=== PATIENT | female | born 1990 | race Hispanic/Latino ===

== ENCOUNTER 2020-10-23 21:11 | Emergency (ER) | payer MEDICARE ==
[2020-10-24] MEDS ORDERED: SODIUM CHLORIDE 0.9% 1000 ML 1,000 ML IV ONE (00:48)
[2020-10-24] MEDS ORDERED: MORPHINE 4 MG/1 ML INJ IV ONE (00:48)
[2020-10-24] MEDS ORDERED: HYDROmorphone 1 MG/1 ML INJ IV ONE ×3 (01:05→03:40)
[2020-10-24] MEDS ORDERED: diphenhydrAMINE 50 MG/ML VIAL IV ONE ×2 (01:05→03:42)
[2020-10-24 01:22] LABS: Basophils % (Auto) 0.4 % (0.0-1.8); Eosinophils # (Auto) 0.1 K/mm3 (0.0-0.4); Eosinophils % (Auto) 0.8 % (0.0-4.3); Hematocrit 32.1 % (30.3-42.9); Lymphocytes # (Auto) 2.2 K/mm3 (1.2-5.4); Lymphocytes % (Auto) 26.7 % (13.4-35.0); Mean Corpuscular HGB Conc 31 % (30-34); Mean Corpuscular Volume 77 fl (79-97); Monocytes # (Auto) 0.4 K/mm3 (0.0-0.8); Monocytes % (Auto) 5.2 % (0.0-7.3); Platelet Count 312 K/mm3 (140-440); Red Blood Count 4.16 M/mm3 (3.65-5.03)
[2020-10-24 01:24] LABS: Red Cell Distribution Width 20.7 % (13.2-15.2)
[2020-10-24 01:43] LABS: Alanine Aminotransferase 10 units/L (7-56); Albumin 3.8 g/dL (3.9-5); Blood Urea Nitrogen 6 mg/dL (7-17); Calcium 8.8 mg/dL (8.4-10.2); Hemolysis Index 1
[2020-10-24 01:51] LABS: BUN/Creatinine Ratio 10; Bilirubin,Direct < 0.2 mg/dL (0-0.2)
--- NOTE | 2020-10-24 02:56 | Emergency Department Report ---
ED General Adult HPI - General Chief complaint: Abdominal Pain Stated complaint: CHEMO PATIENT/OSTOMY BLEED/PAIN Time Seen by Provider: 10/24/20 00:46 Source: patient Mode of arrival: Ambulatory Limitations: No Limitations - History of Present Illness Initial comments: Chief complaint: "Do you have time for the long story? I'm hurting." HPI: This is a 29-year-old female with history of colorectal cancer status post 54 surgeries over the past 12 years who presents with pain at ostomy site and rectum. Patient normally has Dilaudid pump with home health. However she has travel from her home town of [place] to attend a sporting event. She is und ergoing chemotherapy through the [facility] in [place]. She plans to obtain additional care at the cancer center located in [facility]. Patient has open wound at her lower abdomen. She also has open wound at her rectum. She has pain in these areas. She does not have home medication. However she does receive hydromorphone through home health nursing. She has her port continually accessed in order to administer TPN. -: Gradual, This evening Location: abdomen, buttocks Severity scale (0 -10): 8 Consistency: constant Improves with: none Worsens with: none Associated Symptoms: nausea/vomiting - Related Data Allergies Allergy/AdvReac Type Severity Reaction Status Date / Time adalimumab [From Humira] Allergy Rash Verified 10/23/20 22:36 azathioprine [From Imuran] Allergy Rash Verified 10/23/20 22:36 dicyclomine [From Bentyl] Allergy Rash Verified 10/23/20 22:36 infliximab [From Remicade] Allergy Rash Verified 10/23/20 22:36 ketorolac [From Toradol] Allergy Rash Verified 10/23/20 22:36 meperidine [From Demerol] Allergy Rash Verified 10/23/20 22:36 methotrexate [From Trexall] Allergy Angioedema Verified 10/23/20 22:36 metoclopramide [From Reglan] Allergy Rash Verified 10/23/20 22:36 prochlorperazine Allergy Shortness Verified 10/23/20 22:36 [From Compazine] of Breath ondansetron [From Zofran] AdvReac Headache Verified 10/23/20 22:36 IVP DYE Allergy Shortness Uncoded 10/23/20 22:36 of Breath ED Review of Systems ROS: Stated complaint: CHEMO PATIENT/OSTOMY BLEED/PAIN Other details as noted in HPI Comment: All other systems reviewed and negative Constitutional: denies: fever, malaise Respiratory: denies: shortness of breath Cardiovascular: denies: chest pain Gastrointestinal: abdominal pain, nausea, vomiting Skin: lesions ED Past Medical Hx - Past Medical History Previous Medical History?: Yes Additional medical history: Colorectal cancer - Surgical History Past Surgical History?: Yes Additional Surgical History: Partial hysterectomy, 54 total surgeries including ostomy, total colectomy - Social History Smoking Status: Never Smoker Substance Use Type: None ED Physical Exam - General Limitations: No Limitations General appearance: alert, in no apparent distress, other (Pleasant talkative nontoxic-appearing) - Head Head exam: Present: atraumatic, normocephalic - Eye Eye exam: Present: normal appearance - ENT ENT exam: Present: mucous membranes moist - Neck Neck exam: Present: normal inspection, full ROM - Respiratory Respiratory exam: Present: normal lung sounds bilaterally. Absent: respiratory distress, wheezes, rales, rhonchi - Cardiovascular Cardiovascular Exam: Present: regular rate, normal rhythm, normal heart sounds. Absent: systolic murmur, diastolic murmur, rubs, gallop - GI/Abdominal GI/Abdominal exam: Present: soft, other (Open wound with packing involved at the infraumbilical region, ostomy in the right lower quadrant). Absent: distended, guarding, rebound - Extremities Exam Extremities exam: Present: normal inspection - Neurological Exam Neurological exam: Present: alert, oriented X3 - Psychiatric Psychiatric exam: Present: normal affect, normal mood - Skin Skin exam: Present: warm, dry, intact, normal color. Absent: rash ED Course Vital Signs 10/23/20 10/24/20 10/24/20 22:02 02:05 02:07 Temperature 98.1 F 98.2 F Pulse Rate 117 H 101 H Respiratory 18 20 20 Rate Blood Pressure 127/79 Blood Pressure 127/65 [Right] O2 Sat by Pulse 97 98 Oximetry 10/24/20 02:27 Temperature Pulse Rate Respiratory 20 Rate Blood Pressure Blood Pressure [Right] O2 Sat by Pulse 97 Oximetry ED Medical Decision Making - Lab Data Result diagrams: 10/24/20 01:06 10/24/20 01:06 Laboratory Results - last 24 hr 10/24/20 10/24/20 01:06 01:06 WBC 8.3 RBC 4.16 Hgb 10.0 L Hct 32.1 MCV 77 L MCH 24 L MCHC 31 RDW 20.7 H Plt Count 312 Lymph % (Auto) 26.7 Ray % (Auto) 5.2 Eos % (Auto) 0.8 Baso % (Auto) 0.4 Lymph # (Auto) 2.2 Ray # (Auto) 0.4 Eos # (Auto) 0.1 Baso # (Auto) 0.0 Seg Neutrophils % 66.9 Seg Neutrophils # 5.5 Sodium 141 Potassium 3.6 Chloride 106.6 Carbon Dioxide 22 Anion Gap 16 BUN 6 L Creatinine 0.6 Estimated GFR > 60 BUN/Creatinine Ratio 10 Glucose 85 Calcium 8.8 Total Bilirubin 0.20 Direct Bilirubin < 0.2 Indirect Bilirubin 0.0 AST 9 ALT 10 Alkaline Phosphatase 104 Total Protein 7.1 Albumin 3.8 L Albumin/Globulin Ratio 1.2 Lipase 22 - Medical Decision Making Ms. Coulter presents with cancer related pain with history of ostomy, patient showed me pictures of her rectum which reveals a large open wound, patient has open wound in her lower central abdomen which has been present for 3 months. No indication of active infection. No indication of sepsis. Patient received supportive care with IV Benadryl, IV hydromorphone, IV fluid. She did not have vomiting during observation. Patient is discharged home. She plans to return back to [facility]. Her boyfriend is driving personal vehicle. Critical care attestation.: If time is entered above; I have spent that time in minutes in the direct care of this critically ill patient, excluding procedure time. ED Disposition Clinical Impression: Cancer related pain, Colorectal cancer, Open wound anterior abdominal wall Disposition: DC-01 TO HOME OR SELFCARE Is pt being admited?: No Does the pt Need Aspirin: No Condition: Stable Instructions: Abdominal Pain (ED)
[2020-10-24 05:11] VITALS: BP 128/72
== END 2020-10-24 05:14 | disposition home or self-care (01) ==
LOC: ED 21:11
DX: S31.104A Unspecified open wound of abdominal wall, left lower quadrant without penetration into peritoneal cavity, initial encounter (principal); C18.9 Malignant neoplasm of colon, unspecified; G89.3 Neoplasm related pain (acute) (chronic); Z98.890 Other specified postprocedural states; Z88.8 Allergy status to other drugs, medicaments and biological substances; X58.XXXA Exposure to other specified factors, initial encounter; Y93.89 Activity, other specified; Y92.89 Other specified places as the place of occurrence of the external cause; Y99.8 Other external cause status
CPT/HCPCS: 36415; 80048; 80076; 83690; 85025; 96361; 96374; 96375; 96376; 99283; J1170; J1200; J1642; J7030